=== PATIENT | female | born 1980 | race Caucasian/White ===

== ENCOUNTER 2017-08-18 12:55 | Inpatient (IN) | payer OTHER, SELFPAY ==
[2017-08-18] MEDS ORDERED: Ketorolac 30 MG/ML SDV IVPUSH ONE (13:20)
[2017-08-18] MEDS ORDERED: Sodium Chloride 0.9% 1,000 ML IV ONE (13:20)
[2017-08-18] MEDS ORDERED: Ondansetron 4 MG/2 ML SDV IVPUSH ONE (13:20)
--- NOTE | 2017-08-18 13:24 | EDM.PDOC ---
ED HPI GENERAL MEDICAL PROBLEM - General Chief Complaint: Abdominal Pain Stated Complaint: ABDOMINAL PAIN Time Seen by Provider: 08/18/17 12:57 Source of Information: Reports: Patient History Limitations: Reports: No Limitations - History of Present Illness INITIAL COMMENTS - FREE TEXT/NARRATIVE: HISTORY AND PHYSICAL: History of present illness: Patient is a 37-year-old female who presents to the emergency room today with complaints of nausea, loose stools, mid abdominal pain that radiates to the right mid abdomen since Saturday. States she was able to eat Saturday into Saturday afternoon, but since that time has had no appetite and is concerned if she does eat she may have an emesis. When she describes the pain she states it feels like "round ligament pain when I was ". Has dizziness intermittently throughout the day. She denies any syncopal events. Does not improve or worsen with rest or activity. Denies any chest pain, shortness of breath, fever, chills. Denies vomiting, blood in her stools, dysuria. No recent injury or trauma. 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 Review of systems: As per history of present illness and below otherwise all systems reviewed and negative. Past medical history: As per history of present illness and as reviewed below otherwise noncontributory. Surgical history: As per history of present illness and as reviewed below otherwise noncontributory. Social history: No reported history of drug or alcohol abuse. Family history: As per history of present illness and as reviewed below otherwise noncontributory. Physical exam: Gen.: Nontoxic-appearing 37-year-old female. Alert and oriented. Well-developed and well-nourished. HEENT: Atraumatic, normocephalic, pupils reactive, negative for conjunctival pallor or scleral icterus, unable to visualize the tympanic membranes due to cerumen bilaterally, mucous membranes moist, throat clear, neck supple, nontender, trachea midline. Lungs: Clear to auscultation, breath sounds equal bilaterally, chest nontender. We'll do speak in full sentences without shortness of breath. Heart: S1S2, regular rate and rhythm Abdomen: Soft, obese, nondistended, tenderness to the right upper and lower quadrant-no rebound tenderness. Negative for masses or hepatosplenomegaly. Negative for costovertebral tenderness. Pelvis: Stable nontender. Genitourinary: Deferred. Rectal: Deferred. Extremities: Atraumatic, moves all extremities per self, negative for cords or calf pain. Neurovascular unremarkable. Neuro: Awake, alert, oriented. Cranial nerves II through XII unremarkable. Cerebellum unremarkable. Motor and sensory unremarkable throughout. Exam nonfocal. 1430- patient reports that she is comfortable after the Toradol and declines any further pain medication at this time. Reports pain is a 2 out of 10 and is more localized in the right lower quadrant. Instructed to be nothing by mouth. 1535- consulting radiology called at this time, patient has an acute appendicitis. Dr. Garvey was paged for consult, to immediately return the call and will come in to evaluate the patient. 1540- patient is aware diagnosis. She states her pain is still a 2 out of 10 and still declines any additional pain medication. 1545- Dr Garvey is here to see patient. Surgery pending. Dr Garvey is entering orders. Diagnostics: CBC, CMP, amylase, lipase, UA, urine Therapeutics: IV fluid, Zofran, Toradol Impression: Abdominal pain Acute appendicitis Plan: Under the care of Dr. Garvey for treatment of acute appendicitis Definitive disposition and diagnosis as appropriate pending reevaluation and review of above. Onset Date: 08/16/17 Duration: Day(s): Location: Reports: Abdomen Improves with: Reports: None Worsens with: Reports: None Associated Symptoms: Reports: Loss of Appetite, Nausea/Vomiting, Other ( Dizziness). Denies: Chest Pain, Cough, Diaphoresis, Shortness of Breath, Syncope abdominal pain Pain Score (Numeric/FACES): 8 - Related Data Allergies Allergy/AdvReac Type Severity Reaction Status Date / Time No Known Allergies Allergy Verified 08/18/17 13:05 Home Meds: Home Meds . [No Known Home Meds] 08/18/17 [History] Past Medical History - Past Health History Medical/Surgical History: Denies Medical/Surgical History - Infectious Disease History Infectious Disease History: Reports: Chicken Pox - Past Surgical History HEENT Surgical History: Reports: Oral Surgery, Tonsillectomy Social & Family History - Family History Family Medical History: Noncontributory - Tobacco Use Smoking Status *Q: Never Smoker - Caffeine Use Caffeine Use: Reports: Coffee - Alcohol Use Days Per Week of Alcohol Use: 0 - Recreational Drug Use Recreational Drug Use: No ED ROS GENERAL - Review of Systems Review Of Systems: ROS reveals no pertinent complaints other than HPI. ED EXAM, GI/ABD - Physical Exam Exam: See Below (See dictation) Course - Vital Signs Last Recorded V/S: Last Vital Signs Temp 36.6 C 08/18/17 13:06 Pulse 100 08/18/17 13:06 Resp 18 08/18/17 13:06 BP 162/98 H 08/18/17 13:06 Pulse Ox 99 08/18/17 13:06 - Orders/Labs/Meds Orders: Active Orders 24 hr Category Date Time Status Abdomen Pelvis w Cont [CT] Stat Exams 08/18/17 13:56 Taken Piperacillin/Tazobactam [Piperacil-Tazobact] 3.375 gm Med 08/18/17 16:01 Active Sodium Chloride 0.9% [Normal Saline] 50 ml IV ONETIME Medication Orders Piperacillin Sod/Tazobactam (Sod 3.375 gm/ Sodium Chloride) 50 mls @ 100 mls/ hr IV ONETIME ONE Stop: 08/18/17 16:30 Labs: Laboratory Tests 08/18/17 08/18/17 08/18/17 Range/Units 13:10 13:10 13:50 WBC 17.83 H (4.0-11.0) K/uL RBC 5.18 (4.30-5.90) M/uL Hgb 13.7 (12.0-16.0) g/dL Hct 41.9 (36.0-46.0) % MCV 80.9 (80.0-98.0) fL MCH 26.4 L (27.0-32.0) pg MCHC 32.7 (31.0-37.0) g/dL RDW Std Deviation 43.0 (28.0-62.0) fl RDW Coeff of Rudy 15 (11.0-15.0) % Plt Count 359 (150-400) K/uL MPV 8.90 (7.40-12.00) fL Neut % (Auto) 86.8 H (48.0-80.0) % Lymph % (Auto) 6.8 L (16.0-40.0) % [place] % (Auto) 6.1 (0.0-15.0) % Eos % (Auto) 0.1 (0.0-7.0) % Baso % (Auto) 0.2 (0.0-1.5) % Neut # (Auto) 15.5 H (1.4-5.7) K/uL Lymph # (Auto) 1.2 (0.6-2.4) K/uL [place] # (Auto) 1.1 H (0.0-0.8) K/uL Eos # (Auto) 0.0 (0.0-0.7) K/uL Baso # (Auto) 0.0 (0.0-0.1) K/uL Nucleated RBC % 0.0 /100WBC Nucleated RBCs # 0 K/uL Sodium (136-146) mmol/L Potassium (3.5-5.1) mmol/L Chloride (98-110) mmol/L Carbon Dioxide (21-31) mmol/L BUN (6.0-23.0) mg/dL Creatinine (0.6-1.5) mg/dL Est Cr Clr Drug Dosing mL/min Estimated GFR (MDRD) ml/min Glucose (60-110) mg/dL Calcium (8.8-10.8) mg/dL Total Bilirubin (0.1-1.5) mg/dL AST (5-40) IU/L ALT (8-54) IU/L Alkaline Phosphatase (40-150) Total Protein (6.0-8.0) g/dL Albumin (3.5-5.0) g/dL Globulin (2.0-3.5) g/dL Albumin/Globulin Ratio (1.3-2.8) Amylase (10-90) U/L Lipase (7-80) U/L Urine Color YELLOW Urine Appearance CLEAR Urine pH 6.0 (5.0-8.0) Ur Specific [place] 1.020 (1.001-1.035) Urine Protein NEGATIVE (NEGATIVE) mg/dL Urine Glucose (UA) NEGATIVE (NEGATIVE) mg/dL Urine Ketones 15 H (NEGATIVE) mg/dL Urine Occult Blood TRACE-LYSED (NEGATIVE) Urine Nitrite NEGATIVE (NEGATIVE) Urine Bilirubin NEGATIVE (NEGATIVE) Urine Urobilinogen 0.2 (<2.0) EU/dL Ur Leukocyte Esterase NEGATIVE (NEGATIVE) Urine RBC 0-2 (0-2/HPF) Urine WBC 0-2 (0-5/HPF) Ur Epithelial Cells OCCASIONAL (NONE-FEW) Amorphous Sediment LIGHT (NEGATIVE) Urine Bacteria NOT SEEN (NEGATIVE) Urine Mucus NOT SEEN (NONE-MOD) Urine HCG, Qual NEGATIVE (NEGATIVE) 08/18/17 Range/Units 13:50 WBC (4.0-11.0) K/uL RBC (4.30-5.90) M/uL Hgb (12.0-16.0) g/dL Hct (36.0-46.0) % MCV (80.0-98.0) fL MCH (27.0-32.0) pg MCHC (31.0-37.0) g/dL RDW Std Deviation (28.0-62.0) fl RDW Coeff of Rudy (11.0-15.0) % Plt Count (150-400) K/uL MPV (7.40-12.00) fL Neut % (Auto) (48.0-80.0) % Lymph % (Auto) (16.0-40.0) % [place] % (Auto) (0.0-15.0) % Eos % (Auto) (0.0-7.0) % Baso % (Auto) (0.0-1.5) % Neut # (Auto) (1.4-5.7) K/uL Lymph # (Auto) (0.6-2.4) K/uL [place] # (Auto) (0.0-0.8) K/uL Eos # (Auto) (0.0-0.7) K/uL Baso # (Auto) (0.0-0.1) K/uL Nucleated RBC % /100WBC Nucleated RBCs # K/uL Sodium 139 (136-146) mmol/L Potassium 3.8 (3.5-5.1) mmol/L Chloride 103 (98-110) mmol/L Carbon Dioxide 25 (21-31) mmol/L BUN 8 (6.0-23.0) mg/dL Creatinine 0.8 (0.6-1.5) mg/dL Est Cr Clr Drug Dosing 76.15 mL/min Estimated GFR (MDRD) > 60.0 ml/min Glucose 120 H (60-110) mg/dL Calcium 9.4 (8.8-10.8) mg/dL Total Bilirubin 0.6 (0.1-1.5) mg/dL AST 11 (5-40) IU/L ALT 23 (8-54) IU/L Alkaline Phosphatase 69 (40-150) Total Protein 7.4 (6.0-8.0) g/dL Albumin 4.2 (3.5-5.0) g/dL Globulin 3.2 (2.0-3.5) g/dL Albumin/Globulin Ratio 1.3 (1.3-2.8) Amylase 39 (10-90) U/L Lipase 18 (7-80) U/L Urine Color Urine Appearance Urine pH (5.0-8.0) Ur Specific [place] (1.001-1.035) Urine Protein (NEGATIVE) mg/dL Urine Glucose (UA) (NEGATIVE) mg/dL Urine Ketones (NEGATIVE) mg/dL Urine Occult Blood (NEGATIVE) Urine Nitrite (NEGATIVE) Urine Bilirubin (NEGATIVE) Urine Urobilinogen (<2.0) EU/dL Ur Leukocyte Esterase (NEGATIVE) Urine RBC (0-2/HPF) Urine WBC (0-5/HPF) Ur Epithelial Cells (NONE-FEW) Amorphous Sediment (NEGATIVE) Urine Bacteria (NEGATIVE) Urine Mucus (NONE-MOD) Urine HCG, Qual (NEGATIVE) Meds: Medications Generic Name Dose Route Start Last Admin Trade Name Freq PRN Reason Stop Dose Admin Piperacillin Sod/Tazobactam 50 mls @ 100 mls/hr 08/18/17 16:01 Sod 3.375 gm/ Sodium Chloride IV 08/18/17 16:30 ONETIME ONE Discontinued Medications Generic Name Dose Route Start Last Admin Trade Name Freq PRN Reason Stop Dose Admin Sodium Chloride 1,000 mls @ 999 mls/hr 08/18/17 13:20 08/18/17 13:53 Normal Saline IV 08/18/17 14:20 999 mls/hr STAT ONE Administration Iopamidol 100 ml 08/18/17 14:54 08/18/17 14:56 Isovue-370 (76%) IVPUSH 08/18/17 14:55 100 ml ONETIME STA Administration Ketorolac Tromethamine 30 mg 08/18/17 13:20 08/18/17 13:53 Toradol IVPUSH 08/18/17 13:21 30 mg ONETIME ONE Administration Ondansetron HCl 4 mg 08/18/17 13:20 08/18/17 13:53 Zofran IVPUSH 08/18/17 13:21 4 mg ONETIME ONE Administration Departure - Departure Time of Disposition: 16:09 Disposition: Home, Self-Care 01 Clinical Impression: Acute appendicitis Qualifiers: Acute appendicitis type: unspecified acute appendicitis type Qualified Code(s) : K35.80 - Unspecified acute appendicitis - Discharge Information Referrals: PCP,None [Primary Care Provider] - Forms: ED Department Discharge - My Orders Last 24 Hours: My Active Orders 08/18/17 13:56 Abdomen Pelvis w Cont [CT] Stat - Assessment/Plan Last 24 Hours: My Active Orders 08/18/17 13:56 Abdomen Pelvis w Cont [CT] Stat
[2017-08-18 14:30] LABS: CHLORIDE,CL 103 mmol/L (98-110); SODIUM,NA 139 mmol/L (136-146)
[2017-08-18] MEDS ORDERED: Iopamidol 755 Mg/ML 100 ML Bottle IVPUSH STA (14:54)
[2017-08-18] MEDS ORDERED: Piperacillin/Tazobactam 3.375 GM in Sodium Chloride 0.9% 50 ML IV ONE (16:01)
[2017-08-18] MEDS ORDERED: HYDROmorphone 2 MG/ML Syringe IVPUSH PRN (16:21)
--- NOTE | 2017-08-18 16:33 | PCM.HP ---
H&P History of Present Illness - General Date of Service: 08/18/17 Admit Problem/Dx: Admission Diagnosis/Problem Admission Diagnosis/Problem Appendicitis Source of Information: Patient History Limitations: Reports: No Limitations - History of Present Illness Initial Comments - Free Text/Narative: Patient is a 37 year old female who developed abdominal pain on Saturday. It was generalized and located in the central abdomen. The pain became more and more severe. Last night she had fevers, chills, and nausea but stayed at home. She did not take anything for the pain. The pain became located in the RLQ and since it continued to become more severe she presented to the ED. She has a WBC of 17K. Her CT shows a thickened inflamed appendix associated with inflammatory changes in the RLQ. She has some complex fluid in the pelvis but no specific abscess collection. She was given fluids and some IV pain medications which have helped. Her last meal was yesterday. Her last fluid intake was around 12. abdominal pain Pain Score (Numeric/FACES): 8 - Related Data Allergies/Adverse Reactions: Allergies Allergy/AdvReac Type Severity Reaction Status Date / Time No Known Allergies Allergy Verified 08/18/17 13:05 Home Medications: Home Meds . [No Known Home Meds] 08/18/17 [History] Past Medical History - Past Health History Medical/Surgical History: Denies Medical/Surgical History - Infectious Disease History Infectious Disease History: Reports: Chicken Pox - Past Surgical History HEENT Surgical History: Reports: Oral Surgery, Tonsillectomy Social & Family History - Family History Family Medical History: Noncontributory - Tobacco Use Smoking Status *Q: Never Smoker - Caffeine Use Caffeine Use: Reports: Coffee - Alcohol Use Days Per Week of Alcohol Use: 0 - Recreational Drug Use Recreational Drug Use: No H&P Review of Systems - Review of Systems: Review Of Systems: ROS reveals no pertinent complaints other than HPI. Exam - Exam Exam: See Below - Vital Signs Vital Signs: Last Vital Signs Temp 36.6 C 08/18/17 13:06 Pulse 100 08/18/17 13:06 Resp 18 08/18/17 13:06 BP 162/98 H 08/18/17 13:06 Pulse Ox 99 08/18/17 13:06 Weight: 111.13 kg - Exam General: Alert, Oriented HEENT: Conjunctiva Clear, Mucosa Moist & [place], Posterior Pharynx Clear Neck: Supple Lungs: Clear to Auscultation, Normal Respiratory Effort Cardiovascular: Regular Rate, Regular Rhythm GI/Abdominal Exam: Soft, Non-Tender, No Distention Back Exam: Normal Inspection Extremities: Normal Inspection, Normal Range of Motion - Patient Data Lab Results Last 24 hrs: Laboratory Results - last 24 hr 08/18/17 08/18/17 08/18/17 Range/Units 13:10 13:10 13:50 WBC 17.83 H (4.0-11.0) K/uL RBC 5.18 (4.30-5.90) M/uL Hgb 13.7 (12.0-16.0) g/dL Hct 41.9 (36.0-46.0) % MCV 80.9 (80.0-98.0) fL MCH 26.4 L (27.0-32.0) pg MCHC 32.7 (31.0-37.0) g/dL RDW Std Deviation 43.0 (28.0-62.0) fl RDW Coeff of Rudy 15 (11.0-15.0) % Plt Count 359 (150-400) K/uL MPV 8.90 (7.40-12.00) fL Neut % (Auto) 86.8 H (48.0-80.0) % Lymph % (Auto) 6.8 L (16.0-40.0) % [place] % (Auto) 6.1 (0.0-15.0) % Eos % (Auto) 0.1 (0.0-7.0) % Baso % (Auto) 0.2 (0.0-1.5) % Neut # (Auto) 15.5 H (1.4-5.7) K/uL Lymph # (Auto) 1.2 (0.6-2.4) K/uL [place] # (Auto) 1.1 H (0.0-0.8) K/uL Eos # (Auto) 0.0 (0.0-0.7) K/uL Baso # (Auto) 0.0 (0.0-0.1) K/uL Nucleated RBC % 0.0 /100WBC Nucleated RBCs # 0 K/uL Sodium (136-146) mmol/L Potassium (3.5-5.1) mmol/L Chloride (98-110) mmol/L Carbon Dioxide (21-31) mmol/L BUN (6.0-23.0) mg/dL Creatinine (0.6-1.5) mg/dL Est Cr Clr Drug Dosing mL/min Estimated GFR (MDRD) ml/min Glucose (60-110) mg/dL Calcium (8.8-10.8) mg/dL Total Bilirubin (0.1-1.5) mg/dL AST (5-40) IU/L ALT (8-54) IU/L Alkaline Phosphatase (40-150) Total Protein (6.0-8.0) g/dL Albumin (3.5-5.0) g/dL Globulin (2.0-3.5) g/dL Albumin/Globulin Ratio (1.3-2.8) Amylase (10-90) U/L Lipase (7-80) U/L Urine Color YELLOW Urine Appearance CLEAR Urine pH 6.0 (5.0-8.0) Ur Specific [place] 1.020 (1.001-1.035) Urine Protein NEGATIVE (NEGATIVE) mg/dL Urine Glucose (UA) NEGATIVE (NEGATIVE) mg/dL Urine Ketones 15 H (NEGATIVE) mg/dL Urine Occult Blood TRACE-LYSED (NEGATIVE) Urine Nitrite NEGATIVE (NEGATIVE) Urine Bilirubin NEGATIVE (NEGATIVE) Urine Urobilinogen 0.2 (<2.0) EU/dL Ur Leukocyte Esterase NEGATIVE (NEGATIVE) Urine RBC 0-2 (0-2/HPF) Urine WBC 0-2 (0-5/HPF) Ur Epithelial Cells OCCASIONAL (NONE-FEW) Amorphous Sediment LIGHT (NEGATIVE) Urine Bacteria NOT SEEN (NEGATIVE) Urine Mucus NOT SEEN (NONE-MOD) Urine HCG, Qual NEGATIVE (NEGATIVE) 08/18/17 Range/Units 13:50 WBC (4.0-11.0) K/uL RBC (4.30-5.90) M/uL Hgb (12.0-16.0) g/dL Hct (36.0-46.0) % MCV (80.0-98.0) fL MCH (27.0-32.0) pg MCHC (31.0-37.0) g/dL RDW Std Deviation (28.0-62.0) fl RDW Coeff of Rudy (11.0-15.0) % Plt Count (150-400) K/uL MPV (7.40-12.00) fL Neut % (Auto) (48.0-80.0) % Lymph % (Auto) (16.0-40.0) % [place] % (Auto) (0.0-15.0) % Eos % (Auto) (0.0-7.0) % Baso % (Auto) (0.0-1.5) % Neut # (Auto) (1.4-5.7) K/uL Lymph # (Auto) (0.6-2.4) K/uL [place] # (Auto) (0.0-0.8) K/uL Eos # (Auto) (0.0-0.7) K/uL Baso # (Auto) (0.0-0.1) K/uL Nucleated RBC % /100WBC Nucleated RBCs # K/uL Sodium 139 (136-146) mmol/L Potassium 3.8 (3.5-5.1) mmol/L Chloride 103 (98-110) mmol/L Carbon Dioxide 25 (21-31) mmol/L BUN 8 (6.0-23.0) mg/dL Creatinine 0.8 (0.6-1.5) mg/dL Est Cr Clr Drug Dosing 76.15 mL/min Estimated GFR (MDRD) > 60.0 ml/min Glucose 120 H (60-110) mg/dL Calcium 9.4 (8.8-10.8) mg/dL Total Bilirubin 0.6 (0.1-1.5) mg/dL AST 11 (5-40) IU/L ALT 23 (8-54) IU/L Alkaline Phosphatase 69 (40-150) Total Protein 7.4 (6.0-8.0) g/dL Albumin 4.2 (3.5-5.0) g/dL Globulin 3.2 (2.0-3.5) g/dL Albumin/Globulin Ratio 1.3 (1.3-2.8) Amylase 39 (10-90) U/L Lipase 18 (7-80) U/L Urine Color Urine Appearance Urine pH (5.0-8.0) Ur Specific [place] (1.001-1.035) Urine Protein (NEGATIVE) mg/dL Urine Glucose (UA) (NEGATIVE) mg/dL Urine Ketones (NEGATIVE) mg/dL Urine Occult Blood (NEGATIVE) Urine Nitrite (NEGATIVE) Urine Bilirubin (NEGATIVE) Urine Urobilinogen (<2.0) EU/dL Ur Leukocyte Esterase (NEGATIVE) Urine RBC (0-2/HPF) Urine WBC (0-5/HPF) Ur Epithelial Cells (NONE-FEW) Amorphous Sediment (NEGATIVE) Urine Bacteria (NEGATIVE) Urine Mucus (NONE-MOD) Urine HCG, Qual (NEGATIVE) Result Diagrams: 08/18/17 13:50 08/18/17 13:50 *Q Meaningful Use (ADM) - VTE *Q VTE Criteria *Q: - Stroke *Q Stroke Criteria *Q: - AMI *Q AMI Criteria *Q: - Problem List (1) Acute appendicitis SNOMED Code(s): 00613831 ICD Code: K35.80 - UNSPECIFIED ACUTE APPENDICITIS Status: Acute Current Visit: Yes Qualifiers: Acute appendicitis type: unspecified acute appendicitis type Qualified Code (s): K35.80 - Unspecified acute appendicitis Problem List Initiated/Reviewed/Updated: Yes Orders Last 24hrs: Active Orders 24 hr Category Date Time Status Patient Status [ADT] Routine ADT 08/18/17 16:21 Ordered Antiembolic Devices [RC] PER UNIT ROUTINE Care 08/18/17 16:24 Ordered Oxygen Therapy [RC] PRN Care 08/18/17 16:21 Ordered RT Incentive Spirometry [RC] ASDIRECTED Care 08/18/17 16:21 Ordered Up ad Sandie [RC] ASDIRECTED Care 08/18/17 16:21 Ordered Vital Signs [RC] PER UNIT ROUTINE Care 08/18/17 16:21 Ordered Nothing Per Oral Diet [DIET] Diet 08/18/17 Dinner Ordered Abdomen Pelvis w Cont [CT] Stat Exams 08/18/17 13:56 Taken CBC W/O DIFF,HEMOGRAM [HEME] AM Lab 08/19/17 05:11 Ordered Acetaminophen/HYDROcodone [[place] 325-5 MG] Med 08/18/17 16:21 Ordered 2 tab PO Q4H PRN HYDROmorphone [Dilaudid] Med 08/18/17 16:21 Ordered 0.5 mg IVPUSH Q1H PRN Lactated Ringers @ 125 MLS/HR(1000ml) Med 08/18/17 16:30 Ordered Lactated Ringers [Ringers, Lactated] 1,000 ml IV ASDIRECTED Ondansetron [Zofran] Med 08/18/17 16:21 Ordered 4 mg IVPUSH Q6H PRN Piperacillin/Tazobactam [Piperacil-Tazobact] 3.375 gm Med 08/18/17 16:01 Active Sodium Chloride 0.9% [Normal Saline] 50 ml IV ONETIME SCD [Sequential Compression Device] [OM.PC] Stat Oth 08/18/17 16:24 Ordered Resuscitation Status Routine Resus Stat 08/18/17 16:21 Ordered Medication Orders Hydrocodone Bitart/Acetaminophen ([place] 325-5 Mg) 2 tab PO Q4H PRN PRN Reason: Pain (moderate 4-6) Hydromorphone HCl (Dilaudid) 0.5 mg IVPUSH Q1H PRN PRN Reason: Pain (severe 7-10) Piperacillin Sod/Tazobactam (Sod 3.375 gm/ Sodium Chloride) 50 mls @ 100 mls/ hr IV ONETIME ONE Stop: 08/18/17 16:30 Last Admin: 08/18/17 16:13 Dose: 100 mls/hr Lactated Ringer's (Ringers, Lactated) 1,000 mls @ 125 mls/hr IV ASDIRECTED MARGARITA Ondansetron HCl (Zofran) 4 mg IVPUSH Q6H PRN PRN Reason: Nausea/Vomiting Assessment/Plan Comment:: The patient and I discussed the pathophysiology of appendicitis. The treatment for this is appendectomy. We discussed the laparoscopic and open approach. Her CT findings suggest she has perforated and there is a large amount of inflammation around the appendix. I will attempt this laparoscopically but there is a good chance I may convert to open. I explained to her that if it is perforated there is an increased risk of infection after surgery. With her CT findings I may have to perform a cecal resection if the base of the appendix is necrotic. We discussed the risks of bleeding and damage to surrounding structures as well. She verbalized understanding and wishes to proceed. I also informed her that she has cholelithiasis but we will not be removing her gallbladder today. We will discuss gallbladder removal at a later date.
[2017-08-18] MEDS ORDERED: Propofol 200 MG/20 ML SDV ONE (16:39)
[2017-08-18] MEDS ORDERED: Bupivacaine 0.5% 30 ML SDV ONE (16:39)
[2017-08-18] MEDS ORDERED: fentaNYL 100 MCG/2 ML SDV ONE (16:39)
[2017-08-18] MEDS ORDERED: ceFAZolin 1 GM Vial ONE (16:39)
[2017-08-18] MEDS ORDERED: Midazolam 1 MG/ML 2 ML SDV ONE (16:39)
[2017-08-18] MEDS ORDERED: Neostigmine Methylsulfate 1 MG/ML 5 ML Syringe ONE (16:44)
[2017-08-18] MEDS ORDERED: diphenhydrAMINE 50 MG/ML SDV ONE (16:44)
[2017-08-18] MEDS ORDERED: Rocuronium 10 MG/ML 10 ML Syringe ONE (16:44)
[2017-08-18] MEDS ORDERED: Lidocaine 2% 5 ML SDV ONE (16:44)
[2017-08-18] MEDS ORDERED: Ondansetron 4 MG/2 ML SDV ONE (16:44)
[2017-08-18] MEDS ORDERED: fentaNYL 100 MCG/2 ML SDV IVPUSH PRN (17:30)
--- NOTE | 2017-08-18 17:30 | PCM.PREANE ---
Preanesthetic Assessment - Procedure Proposed Procedure: appendectomy - Anesthesia/Transfusion/Family Hx Anesthesia History: Prior Anesthesia Without Reaction (wisdom teeth,t/a) Family History of Anesthesia Reaction: No - Review of Systems Pulmonary: No Symptoms Cardiovascular: No Symptoms Gastrointestinal: Abdominal Pain Neurological: No Symptoms - Physical Assessment NPO Status Date: 08/18/17 (water) NPO Status Time: 12:00 O2 Sat by Pulse Oximetry: 99 Respiratory Rate: 18 Vital Signs: Last Vital Signs Temp 36.6 C 08/18/17 13:06 Pulse 100 08/18/17 13:06 Resp 18 08/18/17 13:06 BP 162/98 H 08/18/17 13:06 Pulse Ox 99 08/18/17 13:06 Height: 1.57 m Weight: 111.13 kg ASA Class: 2E Mental Status: Alert & Oriented x3 Dentition: Reports: Normal Dentition Thyro-Mental Finger Breadths: 3 Mouth Opening Finger Breadths: 4 ROM/Head Extension: Full Lungs: Clear to Auscultation, Normal Respiratory Effort Cardiovascular: Regular Rate, Regular Rhythm - Lab Values: Laboratory Last Values WBC 17.83 K/uL (4.0-11.0) H 08/18/17 13:50 RBC 5.18 M/uL (4.30-5.90) 08/18/17 13:50 Hgb 13.7 g/dL (12.0-16.0) 08/18/17 13:50 Hct 41.9 % (36.0-46.0) 08/18/17 13:50 MCV 80.9 fL (80.0-98.0) 08/18/17 13:50 MCH 26.4 pg (27.0-32.0) L 08/18/17 13:50 MCHC 32.7 g/dL (31.0-37.0) 08/18/17 13:50 RDW Std Deviation 43.0 fl (28.0-62.0) 08/18/17 13:50 RDW Coeff of Rudy 15 % (11.0-15.0) 08/18/17 13:50 Plt Count 359 K/uL (150-400) 08/18/17 13:50 MPV 8.90 fL (7.40-12.00) 08/18/17 13:50 Neut % (Auto) 86.8 % (48.0-80.0) H 08/18/17 13:50 Lymph % (Auto) 6.8 % (16.0-40.0) L 08/18/17 13:50 [place] % (Auto) 6.1 % (0.0-15.0) 08/18/17 13:50 Eos % (Auto) 0.1 % (0.0-7.0) 08/18/17 13:50 Baso % (Auto) 0.2 % (0.0-1.5) 08/18/17 13:50 Neut # (Auto) 15.5 K/uL (1.4-5.7) H 08/18/17 13:50 Lymph # (Auto) 1.2 K/uL (0.6-2.4) 08/18/17 13:50 [place] # (Auto) 1.1 K/uL (0.0-0.8) H 08/18/17 13:50 Eos # (Auto) 0.0 K/uL (0.0-0.7) 08/18/17 13:50 Baso # (Auto) 0.0 K/uL (0.0-0.1) 08/18/17 13:50 Nucleated RBC % 0.0 /100WBC 08/18/17 13:50 Nucleated RBCs # 0 K/uL 08/18/17 13:50 Sodium 139 mmol/L (136-146) 08/18/17 13:50 Potassium 3.8 mmol/L (3.5-5.1) 08/18/17 13:50 Chloride 103 mmol/L (98-110) 08/18/17 13:50 Carbon Dioxide 25 mmol/L (21-31) 08/18/17 13:50 BUN 8 mg/dL (6.0-23.0) 08/18/17 13:50 Creatinine 0.8 mg/dL (0.6-1.5) 08/18/17 13:50 Est Cr Clr Drug Dosing 76.15 mL/min 08/18/17 13:50 Estimated GFR (MDRD) > 60.0 ml/min 08/18/17 13:50 Glucose 120 mg/dL (60-110) H 08/18/17 13:50 Calcium 9.4 mg/dL (8.8-10.8) 08/18/17 13:50 Total Bilirubin 0.6 mg/dL (0.1-1.5) 08/18/17 13:50 AST 11 IU/L (5-40) 08/18/17 13:50 ALT 23 IU/L (8-54) 08/18/17 13:50 Alkaline Phosphatase 69 (40-150) 08/18/17 13:50 Total Protein 7.4 g/dL (6.0-8.0) 08/18/17 13:50 Albumin 4.2 g/dL (3.5-5.0) 08/18/17 13:50 Globulin 3.2 g/dL (2.0-3.5) 08/18/17 13:50 Albumin/Globulin Ratio 1.3 (1.3-2.8) 08/18/17 13:50 Amylase 39 U/L (10-90) 08/18/17 13:50 Lipase 18 U/L (7-80) 08/18/17 13:50 Urine Color YELLOW 08/18/17 13:10 Urine Appearance CLEAR 08/18/17 13:10 Urine pH 6.0 (5.0-8.0) 08/18/17 13:10 Ur Specific [place] 1.020 (1.001-1.035) 08/18/17 13:10 Urine Protein NEGATIVE mg/dL (NEGATIVE) 08/18/17 13:10 Urine Glucose (UA) NEGATIVE mg/dL (NEGATIVE) 08/18/17 13:10 Urine Ketones 15 mg/dL (NEGATIVE) H 08/18/17 13:10 Urine Occult Blood TRACE-LYSED (NEGATIVE) 08/18/17 13:10 Urine Nitrite NEGATIVE (NEGATIVE) 08/18/17 13:10 Urine Bilirubin NEGATIVE (NEGATIVE) 08/18/17 13:10 Urine Urobilinogen 0.2 EU/dL (<2.0) 08/18/17 13:10 Ur Leukocyte Esterase NEGATIVE (NEGATIVE) 08/18/17 13:10 Urine RBC 0-2 (0-2/HPF) 08/18/17 13:10 Urine WBC 0-2 (0-5/HPF) 08/18/17 13:10 Ur Epithelial Cells OCCASIONAL (NONE-FEW) 08/18/17 13:10 Amorphous Sediment LIGHT (NEGATIVE) 08/18/17 13:10 Urine Bacteria NOT SEEN (NEGATIVE) 08/18/17 13:10 Urine Mucus NOT SEEN (NONE-MOD) 08/18/17 13:10 Urine HCG, Qual NEGATIVE (NEGATIVE) 08/18/17 13:10 - Allergies Allergies/Adverse Reactions: Allergies Allergy/AdvReac Type Severity Reaction Status Date / Time No Known Allergies Allergy Verified 08/18/17 13:05 - Blood Blood Available: No - Acknowledgements Anesthesia Type Planned: General Anesthesia Pt an Appropriate Candidate for the Planned Anesthesia: Yes Alternatives and Risks of Anesthesia Discussed w Pt/Guardian: Yes Pt/Guardian Understands and Agrees with Anesthesia Plan: Yes PreAnesthesia Questionnaire - Past Health History Medical/Surgical History: Denies Medical/Surgical History - Infectious Disease History Infectious Disease History: Reports: Chicken Pox - Past Surgical History HEENT Surgical History: Reports: Oral Surgery, Tonsillectomy - SUBSTANCE USE Smoking Status *Q: Never Smoker Days Per Week of Alcohol Use: 0 Recreational Drug Use History: No - HOME MEDS Home Medications: Home Meds . [No Known Home Meds] 08/18/17 [History] - CURRENT (IN HOUSE) MEDS Current Meds: Current Medications Hydrocodone Bitart/Acetaminophen ([place] 325-5 Mg) 2 tab PO Q4H PRN PRN Reason: Pain (moderate 4-6) Hydromorphone HCl (Dilaudid) 0.5 mg IVPUSH Q1H PRN PRN Reason: Pain (severe 7-10) Lactated Ringer's (Ringers, Lactated) 1,000 mls @ 125 mls/hr IV ASDIRECTED [facility] Ondansetron HCl (Zofran) 4 mg IVPUSH Q6H PRN PRN Reason: Nausea/Vomiting Discontinued Medications Bupivacaine HCl (Marcaine 0.5%) Confirm Administered Dose 30 ml .ROUTE .STK-MED ONE Stop: 08/18/17 16:40 Cefazolin Sodium (Ancef) Confirm Administered Dose 1 gm .ROUTE .STK-MED ONE Stop: 08/18/17 16:40 Diphenhydramine HCl (Benadryl) Confirm Administered Dose 50 mg .ROUTE .STK-MED ONE Stop: 08/18/17 16:45 Fentanyl (Sublimaze) Confirm Administered Dose 100 mcg .ROUTE .STK-MED ONE Stop: 08/18/17 16:40 Glycopyrrolate () Confirm Administered Dose 1 mg .ROUTE .STK-MED ONE Stop: 08/18/17 16:45 Sodium Chloride (Normal Saline) 1,000 mls @ 999 mls/hr IV STAT ONE Stop: 08/18/17 14:20 Last Admin: 08/18/17 13:53 Dose: 999 mls/hr Piperacillin Sod/Tazobactam (Sod 3.375 gm/ Sodium Chloride) 50 mls @ 100 mls/ hr IV ONETIME ONE Stop: 08/18/17 16:30 Last Admin: 08/18/17 16:13 Dose: 100 mls/hr Iopamidol (Isovue-370 (76%)) 100 ml IVPUSH ONETIME STA Stop: 08/18/17 14:55 Last Admin: 08/18/17 14:56 Dose: 100 ml Ketorolac Tromethamine (Toradol) 30 mg IVPUSH ONETIME ONE Stop: 08/18/17 13:21 Last Admin: 08/18/17 13:53 Dose: 30 mg Lidocaine (Xylocaine-Mpf 2%) Confirm Administered Dose 5 ml .ROUTE .STK-MED ONE Stop: 08/18/17 16:45 Midazolam HCl (Versed 1 Mg/Ml) Confirm Administered Dose 2 mg .ROUTE .STK-MED ONE Stop: 08/18/17 16:40 Neostigmine Methylsulfate (Neostigmine) Confirm Administered Dose 5 mg .ROUTE .STK-MED ONE Stop: 08/18/17 16:45 Ondansetron HCl (Zofran) 4 mg IVPUSH ONETIME ONE Stop: 08/18/17 13:21 Last Admin: 08/18/17 13:53 Dose: 4 mg Ondansetron HCl (Zofran) Confirm Administered Dose 4 mg .ROUTE .STK-MED ONE Stop: 08/18/17 16:45 Propofol (Diprivan 20 Ml) Confirm Administered Dose 200 mg .ROUTE .STK-MED ONE Stop: 08/18/17 16:40 Rocuronium [place] (Zemuron) Confirm Administered Dose 100 mg .ROUTE .STK-MED ONE Stop: 08/18/17 16:45
[2017-08-18] MEDS ORDERED: fentaNYL 250 MCG/5 ML SDV ONE (17:34)
[2017-08-18] MEDS ORDERED: Meperidine PF 25 MG/ML Syringe ONE (18:50)
--- NOTE | 2017-08-18 18:52 | PCM.OPNOTE ---
- General Post-Op/Procedure Note Date of Surgery/Procedure: 08/18/17 Operative Procedure(s): Laparoscopic appendectomy Findings: Necrotic perforated appendicitis encased by omentum and small bowel. Base of the appendix appeared healthy and I was able to staple across this safely. No abscess. Pre Op Diagnosis: appendicitis Post-Op Diagnosis: Necrotic, perforated appendicitis Anesthesia Technique: General ET Tube Primary Surgeon: Cielo Garvey Pathology: Appendix Fluid Replacement, Intraop: 1,000 Output, Urine Amount: 250 EBL in mLs: 25 Condition: Good
--- NOTE | 2017-08-18 19:10 | PCM.POSTAN ---
POST ANESTHESIA ASSESSMENT - MENTAL STATUS Mental Status: Alert - VITAL SIGNS Pulse Rate: 90 SaO2: 94 Resp Rate: 16 Blood Pressure: 130/81 - RESPIRATORY Respiratory Status: Respiratory Rate WNL, Airway Patent, O2 Saturation Stable - CARDIOVASCULAR CV Status: Pulse Rate WNL, Blood Pressure Stable - GASTROINTESTINAL GI Status: No Symptoms - PAIN Pain Score: 0 - POST OP HYDRATION Hydration Status: Adequate & Stable
[2017-08-18] MEDS: Acetaminophen/HYDROcodone 325-5 MG Tab PO PRN (21:28)
--- NOTE | 2017-08-18 22:47 | OR ---
SURGEON: VIANNEY RIVERA MD DATE OF PROCEDURE: PREOPERATIVE DIAGNOSIS: Acute appendicitis. POSTOPERATIVE DIAGNOSIS: Necrotic perforated appendicitis. PROCEDURE PERFORMED: Laparoscopic appendectomy. ANESTHESIA: General endotracheal anesthesia. FLUIDS: 1 L crystalloid. URINE OUTPUT: 250 mL. ESTIMATED BLOOD LOSS: 25 mL. FINDINGS: Necrotic and perforated appendicitis. Small bowel and omentum encasing the appendix. No evidence of intraabdominal abscess. COMPLICATIONS: None. INDICATIONS: The patient is a 37-year-old female who presents with 3 days of abdominal pain. Workup in the emergency room showed a leukocytosis of 17,[address] of the abdomen and pelvis showed an enlarged and inflamed appendix with surrounding phlegmon. The patient and I discussed the pathophysiology of acute appendicitis. I explained to her that at this point in time, I believe the appendix is perforated. I will attempt this laparoscopically, but should I be unable to complete it safely, I will convert to open. We discussed the risks including bleeding, infection, or damage to surrounding structures including perforation. The patient verbalized understanding and wishes to proceed. PROCEDURE IN DETAIL: The patient was brought into the operating room and placed on the OR table in a supine position. A time-out was completed verifying the patient's name, age, date of , allergies, and procedure to be performed. General endotracheal anesthesia was induced. The left arm was tucked to the patient's side and a Nath catheter placed. The abdomen was prepped and draped in the usual standard fashion. I anesthetized an area about 4 fingerbreadths below the left subcostal margin along the midaxillary line with 0.5% Marcaine plain. A 1 cm incision was made using 11 blade. A 5 mm optical trocar was then used to gain entry into the abdomen. All layers of the abdominal wall were noted upon placement. The abdomen was insufflated. I inspected the area underneath my initial trocar site and noted no damage to surrounding structures. A 5 mm scope was placed under direct visualization just left and lateral to the umbilicus. A 12 mm trocar was placed in the left lower quadrant under direct visualization. The patient was placed in Trendelenburg position and airplaned slightly to the left. An inflamed-appearing mass was noted in the right lower quadrant. Using gentle dissection and suction, I was able to peel the small bowel and omentum off the inflamed-appearing appendix. The appendix tip was noted and I grasped this and lifted the appendix towards the anterior abdominal wall. The appendix was noted to be perforated and actively draining purulent material. Using suction and a [place] dissector, I dissected the appendix free of the inflamed fat around the appendix up to the base of the cecum. Once I had verified my anatomy, I took a Harmonic Scalpel and dissected down. I dissected the appendiceal mesentery off the border of the appendix going from distal to proximal. Once the base of the appendix had been reached, I used an endoscopic stapling device to transect and staple across the base of the appendix with a 45 mm blue load. Despite all the inflammation, the base of the appendix appeared healthy and did not appear necrotic. During manipulation of the appendix, it tore in half. The appendix was removed in 2 parts using 2 EndoCatch bags through the 12 mm port site. The right lower quadrant was copiously irrigated with normal saline until it ran clear. I inspected the appendiceal mesentery and any bleeding points were cauterized with hook cautery. The area appeared slightly oozy, so a small piece of Surgicel was laid along the dissection line. No further bleeding was noted. I closed my 12 mm port site using a Kirill-Reece device and a single interrupted 0 Vicryl suture. This closed the fascia adequately. The 5 mm trocars were removed under direct visualization and the abdomen allowed to desufflate. Given the infected and necrotic-appearing appendix, I closed the skin incision site loosely with lucy to allow adequate drainage. The patient tolerated the procedure well. She was extubated and taken to PACU in stable condition. ANAHY THURSTON /[id number]
[2017-08-18] MEDS: Piperacillin/Tazobactam 3.375 GM in Sodium Chloride 0.9% 50 ML IV SCH (23:56)
[2017-08-19] MEDS: Lactated Ringers 1,000 ML IV SCH ×2 (00:32→07:45)
[2017-08-19] MEDS: Acetaminophen/HYDROcodone 325-5 MG Tab PO PRN ×5 (04:18→21:19)
[2017-08-19] MEDS: Piperacillin/Tazobactam 3.375 GM in Sodium Chloride 0.9% 50 ML IV SCH ×3 (07:44→23:44)
--- NOTE | 2017-08-19 08:03 | PCM48HPAN ---
Post Anesthesia Note - EVALUATION WITHIN 48HRS OF ANESTHETIC Vital Signs in Normal Range: Yes Patient Participated in Evaluation: Yes Respiratory Function Stable: Yes Airway Patent: Yes Cardiovascular Function Stable: Yes Hydration Status Stable: Yes (still on ice chips, no nausea vomiting) Pain Control Satisfactory: Yes Nausea and Vomiting Control Satisfactory: Yes Mental Status Recovered: Yes
--- NOTE | 2017-08-19 09:28 | PCM.SURGPN ---
- General Info Date of Service: 08/19/17 Date of Surgery/Procedure: 08/18/17 POD#: 1 Post-Op Diagnosis: perforated appendicitis Functional Status: Reports: Pain Controlled, Urinating - Review of Systems General: Reports: Fever Pulmonary: Reports: No Symptoms Cardiovascular: Reports: No Symptoms Gastrointestinal: Reports: Abdominal Pain (along incisions and RLQ) - Patient Data Vitals - Most Recent: Last Vital Signs Temp 37.3 C 08/19/17 08:00 Pulse 105 H 08/19/17 08:00 Resp 22 H 08/19/17 08:00 BP 112/56 L 08/19/17 08:00 Pulse Ox 91 L 08/19/17 08:00 Weight - Most Recent: 111.13 kg I&O - Last 24 Hours: Intake & Output 08/18/17 08/19/17 08/19/17 22:59 06:59 14:59 Intake Total 770 Output Total 250 Balance 520 Lab Results Last 24 Hrs: Laboratory Results - last 24 hr 08/19/17 Range/Units 05:40 WBC 10.87 (4.0-11.0) K/uL RBC 4.68 (4.30-5.90) M/uL Hgb 12.1 (12.0-16.0) g/dL Hct 38.1 (36.0-46.0) % MCV 81.4 (80.0-98.0) fL MCH 25.9 L (27.0-32.0) pg MCHC 31.8 (31.0-37.0) g/dL RDW Std Deviation 44.1 (28.0-62.0) fl RDW Coeff of Rudy 15 (11.0-15.0) % Plt Count 297 (150-400) K/uL MPV 8.90 (7.40-12.00) fL Nucleated RBC % 0.0 /100WBC Nucleated RBCs # 0 K/uL Med Orders - Current: Current Medications Hydrocodone Bitart/Acetaminophen ([place] 325-5 Mg) 2 tab PO Q4H PRN PRN Reason: Pain (moderate 4-6) Last Admin: 08/19/17 08:25 Dose: 2 tab Hydromorphone HCl (Dilaudid) 0.5 mg IVPUSH Q1H PRN PRN Reason: Pain (severe 7-10) Last Admin: 08/19/17 05:21 Dose: 0.5 mg Lactated Ringer's (Ringers, Lactated) 1,000 mls @ 125 mls/hr IV ASDIRECTED [facility] Last Admin: 08/19/17 07:45 Dose: 125 mls/hr Piperacillin Sod/Tazobactam (Sod 3.375 gm/ Sodium Chloride) 50 mls @ 100 mls/ hr IV Q8H [facility] Last Admin: 08/19/17 07:44 Dose: 100 mls/hr Ondansetron HCl (Zofran) 4 mg IVPUSH Q6H PRN PRN Reason: Nausea/Vomiting Discontinued Medications Bupivacaine HCl (Marc[place] 0.5%) Confirm Administered Dose 30 ml .ROUTE .STK-MED ONE Stop: 08/18/17 16:40 Cefazolin Sodium (Ancef) Confirm Administered Dose 1 gm .ROUTE .STK-MED ONE Stop: 08/18/17 16:40 Diphenhydramine HCl (Benadryl) Confirm Administered Dose 50 mg .ROUTE .STK-MED ONE Stop: 08/18/17 16:45 Fentanyl (Sublimaze) Confirm Administered Dose 100 mcg .ROUTE .STK-MED ONE Stop: 08/18/17 16:40 Fentanyl (Sublimaze) 50 mcg IVPUSH Q5M PRN PRN Reason: Pain (severe 7-10) Stop: 08/18/17 21:00 Fentanyl (Sublimaze) Confirm Administered Dose 250 mcg .ROUTE .STK-MED ONE Stop: 08/18/17 17:35 Glycopyrrolate () Confirm Administered Dose 1 mg .ROUTE .STK-MED ONE Stop: 08/18/17 16:45 Sodium Chloride (Normal Saline) 1,000 mls @ 999 mls/hr IV STAT ONE Stop: 08/18/17 14:20 Last Admin: 08/18/17 13:53 Dose: 999 mls/hr Piperacillin Sod/Tazobactam (Sod 3.375 gm/ Sodium Chloride) 50 mls @ 100 mls/ hr IV ONETIME ONE Stop: 08/18/17 16:30 Last Admin: 08/18/17 16:13 Dose: 100 mls/hr Iopamidol (Isovue-370 (76%)) 100 ml IVPUSH ONETIME STA Stop: 08/18/17 14:55 Last Admin: 08/18/17 14:56 Dose: 100 ml Ketorolac Tromethamine (Toradol) 30 mg IVPUSH ONETIME ONE Stop: 08/18/17 13:21 Last Admin: 08/18/17 13:53 Dose: 30 mg Lidocaine (Xylocaine-Mpf 2%) Confirm Administered Dose 5 ml .ROUTE .STK-MED ONE Stop: 08/18/17 16:45 Meperidine HCl (Demerol) Confirm Administered Dose 25 mg .ROUTE .STK-MED ONE Stop: 08/18/17 18:51 Last Admin: 08/19/17 00:23 Dose: Not Given Midazolam HCl (Versed 1 Mg/Ml) Confirm Administered Dose 2 mg .ROUTE .STK-MED ONE Stop: 08/18/17 16:40 Neostigmine Methylsulfate (Neostigmine) Confirm Administered Dose 5 mg .ROUTE .STK-MED ONE Stop: 08/18/17 16:45 Ondansetron HCl (Zofran) 4 mg IVPUSH ONETIME ONE Stop: 08/18/17 13:21 Last Admin: 08/18/17 13:53 Dose: 4 mg Ondansetron HCl (Zofran) Confirm Administered Dose 4 mg .ROUTE .STK-MED ONE Stop: 08/18/17 16:45 Propofol (Diprivan 20 Ml) Confirm Administered Dose 200 mg .ROUTE .STK-MED ONE Stop: 08/18/17 16:40 Rocuronium [place] (Zemuron) Confirm Administered Dose 100 mg .ROUTE .STK-MED ONE Stop: 08/18/17 16:45 - Exam Wound/Incisions: Dressing Dry and Intact General: Alert, Oriented Lungs: Clear to Auscultation, Normal Respiratory Effort Cardiovascular: Regular Rate, Regular Rhythm GI/Abdominal Exam: Normal Bowel Sounds, Soft, Non-Tender, No Distention Extremities: Normal Inspection Skin: Warm, Dry, Intact - Problem List & Annotations (1) Acute appendicitis SNOMED Code(s): 58674800 Code(s): K35.80 - UNSPECIFIED ACUTE APPENDICITIS Status: Acute Current Visit: Yes Qualifiers: Acute appendicitis type: unspecified acute appendicitis type Qualified Code (s): K35.80 - Unspecified acute appendicitis - Problem List Review Problem List Initiated/Reviewed/Updated: Yes - My Orders Last 24 Hours: Active Orders 24 hr Category Date Time Status Regular Diet [DIET] Diet 08/19/17 Lunch Active Medication Orders Hydrocodone Bitart/Acetaminophen ([place] 325-5 Mg) 2 tab PO Q4H PRN PRN Reason: Pain (moderate 4-6) Last Admin: 08/19/17 08:25 Dose: 2 tab Admin: 08/19/17 04:18 Dose: 2 tab Admin: 08/18/17 21:28 Dose: 2 tab Hydromorphone HCl (Dilaudid) 0.5 mg IVPUSH Q1H PRN PRN Reason: Pain (severe 7-10) Last Admin: 08/19/17 05:21 Dose: 0.5 mg Lactated Ringer's (Ringers, Lactated) 1,000 mls @ 125 mls/hr IV ASDIRECTED [facility] Last Admin: 08/19/17 07:45 Dose: 125 mls/hr Infusion: 08/19/17 07:45 Dose: 125 mls/hr Admin: 08/19/17 00:32 Dose: 125 mls/hr Piperacillin Sod/Tazobactam (Sod 3.375 gm/ Sodium Chloride) 50 mls @ 100 mls/ hr IV Q8H [facility] Last Admin: 08/19/17 07:44 Dose: 100 mls/hr Infusion: 08/19/17 00:26 Dose: 100 mls/hr Admin: 08/18/17 23:56 Dose: 100 mls/hr Ondansetron HCl (Zofran) 4 mg IVPUSH Q6H PRN PRN Reason: Nausea/Vomiting - Plan Plan (Free Text/Narrative):: -Pain: [place], IV dilaudid -Febrile and tachycardic last night which is to be expected given her perforated and necrotic appendix. Continue IVF and IV antibiotics. -Regular diet -Encourage OOB activity and IS use.
--- NOTE | 2017-08-19 16:04 | CT ---
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 Site : [id number] Study: CT Abdomen/Pelvis [id number] 3:08:11 PM Ordering Physician: Doctor Koch Final Report: INDICATION: Nausea, right-sided pain. Lightheaded. No appetite. Symptoms since Saturday. Technique: CT of the abdomen and pelvis performed after IV injection of contrast. Findings: Moderate sized irregular shaped stone in the gallbladder. Tiny stone left kidney. Small lymph nodes diffusely throughout the abdomen pelvis. Small cyst in the left ovary. Small amount of complex fluid in the pelvis posteriorly could be physiologic or related to the appendiceal pathology described above. Mild soft tissue stranding about the descending colon focally on image is 46- 52. There are diverticula in this region. This could be related to mild acute diverticulitis. The appendix is dilated to moderately prominent degree and has a thick enhancing wall. Appendix measures 1.5 cm in diameter and contains appendicolith. Moderate amount of phlegmonous inflammatory stranding in the periappendiceal and right mid and upper pelvic fat with greater than small amounts of fluid in the same region. Findings typical of acute appendicitis. No abscess or free air at this time but given the changes the findings could indicate impending rupture. Wall thickening at the base of the cecum related to the appendicitis. The terminal ileal wall may be mildly thickened also related to similar etiology. Mild soft tissue stranding in the fat lateral to the liver may be related to more diffuse changes from the appendicitis. Remainder negative. Impression: 1. Moderately prominent changes of acute appendicitis as described above without abscess or free air. Given the degree of phlegmonous inflammatory stranding and fluid about the appendix, findings could indicate a impending rupture. 2. Mild soft tissue stranding about the descending colon where there are diverticula could be related to mild inflammation such as mild diverticulitis. 3. Cholelithiasis. 4. Small cyst left ovary. 5. Small amount of complex fluid in the pelvis posteriorly may be related to the appendicitis or physiologic etiology. 6. Moderate wall thickening involving the base of the cecum likely related to the appendicitis. 7. Tiny stone left kidney. Other findings as above. Please note that all CT scans at this facility use dose modulation, iterative reconstruction, and/or weight-based dosing when appropriate to reduce radiation dose to as low as reasonably achievable. Dictated by Daniele Soto MD @ Aug 18 2017 3:29PM (Electronic Signature) Report Signed by Proxy. MTDD
[2017-08-20] MEDS: Acetaminophen/HYDROcodone 325-5 MG Tab PO PRN ×4 (03:33→20:28)
[2017-08-20] MEDS: Piperacillin/Tazobactam 3.375 GM in Sodium Chloride 0.9% 50 ML IV SCH ×2 (07:40→15:13)
[2017-08-20] MEDS ORDERED: Lactated Ringers 1,000 ML IV ONE (12:44)
[2017-08-20] MEDS: Lactated Ringers 1,000 ML IV SCH (14:03)
--- NOTE | 2017-08-20 17:29 | PCM.SURGPN ---
- General Info Date of Service: 08/20/17 Date of Surgery/Procedure: 08/18/17 POD#: 2 Functional Status: Reports: Other (Patient's incisional pain is well- controlled. She continues to have some discomfort in the right lower quadrant but feels it is slowly improving. She is passing gas. She feels weak overall. She continues to have intermittent low-grade fevers and tachycardia.) - Review of Systems General: Reports: Fever, Weakness, Fatigue. Denies: Chills Pulmonary: Reports: No Symptoms Cardiovascular: Reports: No Symptoms Gastrointestinal: Reports: Abdominal Pain (Mild along right lower quadrant), Flatus - Patient Data Vitals - Most Recent: Last Vital Signs Temp 36.4 C 08/20/17 16:00 Pulse 104 H 08/20/17 16:00 Resp 20 08/20/17 16:00 BP 116/57 L 08/20/17 16:00 Pulse Ox 94 L 08/20/17 16:00 Weight - Most Recent: 111.13 kg I&O - Last 24 Hours: Intake & Output 08/20/17 08/20/17 08/20/17 06:59 14:59 22:59 Intake Total 1250 1764 Output Total 1450 1800 Balance -200 -36 Lab Results Last 24 Hrs: Laboratory Results - last 24 hr 08/20/17 Range/Units 07:43 WBC 12.79 H (4.0-11.0) K/uL RBC 4.72 (4.30-5.90) M/uL Hgb 12.3 (12.0-16.0) g/dL Hct 39.1 (36.0-46.0) % MCV 82.8 (80.0-98.0) fL MCH 26.1 L (27.0-32.0) pg MCHC 31.5 (31.0-37.0) g/dL RDW Std Deviation 45.7 (28.0-62.0) fl RDW Coeff of Rudy 15 (11.0-15.0) % Plt Count 277 (150-400) K/uL MPV 8.80 (7.40-12.00) fL Neut % (Auto) 81.2 H (48.0-80.0) % Lymph % (Auto) 13.2 L (16.0-40.0) % [place] % (Auto) 5.1 (0.0-15.0) % Eos % (Auto) 0.2 (0.0-7.0) % Baso % (Auto) 0.3 (0.0-1.5) % Neut # (Auto) 10.4 H (1.4-5.7) K/uL Lymph # (Auto) 1.7 (0.6-2.4) K/uL [place] # (Auto) 0.7 (0.0-0.8) K/uL Eos # (Auto) 0.0 (0.0-0.7) K/uL Baso # (Auto) 0.0 (0.0-0.1) K/uL Nucleated RBC % 0.0 /100WBC Nucleated RBCs # 0 K/uL Med Orders - Current: Current Medications Hydrocodone Bitart/Acetaminophen ([place] 325-5 Mg) 2 tab PO Q4H PRN PRN Reason: Pain (moderate 4-6) Last Admin: 08/20/17 14:08 Dose: 2 tab Hydromorphone HCl (Dilaudid) 0.5 mg IVPUSH Q1H PRN PRN Reason: Pain (severe 7-10) Last Admin: 08/19/17 05:21 Dose: 0.5 mg Piperacillin Sod/Tazobactam (Sod 3.375 gm/ Sodium Chloride) 50 mls @ 100 mls/ hr IV Q8H [facility] Last Admin: 08/20/17 15:13 Dose: 100 mls/hr Lactated Ringer's (Ringers, Lactated) 1,000 mls @ 75 mls/hr IV ASDIRECTED [facility] Last Admin: 08/20/17 14:03 Dose: 75 mls/hr Ondansetron HCl (Zofran) 4 mg IVPUSH Q6H PRN PRN Reason: Nausea/Vomiting Discontinued Medications Bupivacaine HCl (Marcaine 0.5%) Confirm Administered Dose 30 ml .ROUTE .STK-MED ONE Stop: 08/18/17 16:40 Cefazolin Sodium (Ancef) Confirm Administered Dose 1 gm .ROUTE .STK-MED ONE Stop: 08/18/17 16:40 Diphenhydramine HCl (Benadryl) Confirm Administered Dose 50 mg .ROUTE .STK-MED ONE Stop: 08/18/17 16:45 Fentanyl (Sublimaze) Confirm Administered Dose 100 mcg .ROUTE .STK-MED ONE Stop: 08/18/17 16:40 Fentanyl (Sublimaze) 50 mcg IVPUSH Q5M PRN PRN Reason: Pain (severe 7-10) Stop: 08/18/17 21:00 Fentanyl (Sublimaze) Confirm Administered Dose 250 mcg .ROUTE .STK-MED ONE Stop: 08/18/17 17:35 Glycopyrrolate () Confirm Administered Dose 1 mg .ROUTE .STK-MED ONE Stop: 08/18/17 16:45 Sodium Chloride (Normal Saline) 1,000 mls @ 999 mls/hr IV STAT ONE Stop: 08/18/17 14:20 Last Admin: 08/18/17 13:53 Dose: 999 mls/hr Piperacillin Sod/Tazobactam (Sod 3.375 gm/ Sodium Chloride) 50 mls @ 100 mls/ hr IV ONETIME ONE Stop: 08/18/17 16:30 Last Admin: 08/18/17 16:13 Dose: 100 mls/hr Lactated Ringer's (Ringers, Lactated) 1,000 mls @ 125 mls/hr IV ASDIRECTED [facility] Last Admin: 08/19/17 07:45 Dose: 125 mls/hr Lactated Ringer's (Ringers, Lactated) 1,000 mls @ 1,000 mls/hr IV .BOLUS ONE Stop: 08/20/17 13:43 Last Admin: 08/20/17 12:52 Dose: 1,000 mls/hr Iopamidol (Isovue-370 (76%)) 100 ml IVPUSH ONETIME STA Stop: 08/18/17 14:55 Last Admin: 08/18/17 14:56 Dose: 100 ml Ketorolac Tromethamine (Toradol) 30 mg IVPUSH ONETIME ONE Stop: 08/18/17 13:21 Last Admin: 08/18/17 13:53 Dose: 30 mg Lidocaine (Xylocaine-Mpf 2%) Confirm Administered Dose 5 ml .ROUTE .STK-MED ONE Stop: 08/18/17 16:45 Meperidine HCl (Demerol) Confirm Administered Dose 25 mg .ROUTE .STK-MED ONE Stop: 08/18/17 18:51 Last Admin: 08/19/17 00:23 Dose: Not Given Midazolam HCl (Versed 1 Mg/Ml) Confirm Administered Dose 2 mg .ROUTE .STK-MED ONE Stop: 08/18/17 16:40 Neostigmine Methylsulfate (Neostigmine) Confirm Administered Dose 5 mg .ROUTE .STK-MED ONE Stop: 08/18/17 16:45 Ondansetron HCl (Zofran) 4 mg IVPUSH ONETIME ONE Stop: 08/18/17 13:21 Last Admin: 08/18/17 13:53 Dose: 4 mg Ondansetron HCl (Zofran) Confirm Administered Dose 4 mg .ROUTE .STK-MED ONE Stop: 08/18/17 16:45 Propofol (Diprivan 20 Ml) Confirm Administered Dose 200 mg .ROUTE .STK-MED ONE Stop: 08/18/17 16:40 Rocuronium [place] (Zemuron) Confirm Administered Dose 100 mg .ROUTE .STK-MED ONE Stop: 08/18/17 16:45 - Exam Wound/Incisions: Healing Well General: Alert, Oriented Lungs: Clear to Auscultation, Normal Respiratory Effort Cardiovascular: Regular Rhythm, Tachycardia GI/Abdominal Exam: Soft, Non-Tender, No Distention. No: Rigid, Rebound, Tender - Problem List & Annotations (1) Acute appendicitis SNOMED Code(s): 85679356 Code(s): K35.80 - UNSPECIFIED ACUTE APPENDICITIS Status: Acute Current Visit: Yes Qualifiers: Acute appendicitis type: unspecified acute appendicitis type Qualified Code (s): K35.80 - Unspecified acute appendicitis - Problem List Review Problem List Initiated/Reviewed/Updated: Yes - My Orders Last 24 Hours: Active Orders 24 hr Category Date Time Status CBC WITH AUTO DIFF [HEME] AM Lab 08/21/17 05:11 Ordered CBC WITH AUTO DIFF [HEME] AM Lab 08/22/17 05:11 Ordered Lactated Ringers [Ringers, Lactated] 1,000 ml Med 08/20/17 13:00 Active IV ASDIRECTED Medication Orders Hydrocodone Bitart/Acetaminophen ([place] 325-5 Mg) 2 tab PO Q4H PRN PRN Reason: Pain (moderate 4-6) Last Admin: 08/20/17 14:08 Dose: 2 tab Admin: 08/20/17 08:38 Dose: 2 tab Admin: 08/20/17 03:33 Dose: 2 tab Admin: 08/19/17 21:19 Dose: 2 tab Admin: 08/19/17 17:11 Dose: 2 tab Admin: 08/19/17 12:43 Dose: 2 tab Admin: 08/19/17 08:25 Dose: 2 tab Admin: 08/19/17 04:18 Dose: 2 tab Admin: 08/18/17 21:28 Dose: 2 tab Hydromorphone HCl (Dilaudid) 0.5 mg IVPUSH Q1H PRN PRN Reason: Pain (severe 7-10) Last Admin: 08/19/17 05:21 Dose: 0.5 mg Piperacillin Sod/Tazobactam (Sod 3.375 gm/ Sodium Chloride) 50 mls @ 100 mls/ hr IV Q8H [facility] Last Admin: 08/20/17 15:13 Dose: 100 mls/hr Infusion: 08/20/17 08:10 Dose: 100 mls/hr Admin: 08/20/17 07:40 Dose: 100 mls/hr Infusion: 08/20/17 00:14 Dose: 100 mls/hr Admin: 08/19/17 23:44 Dose: 100 mls/hr Infusion: 08/19/17 16:24 Dose: 100 mls/hr Admin: 08/19/17 15:54 Dose: 100 mls/hr Infusion: 08/19/17 08:14 Dose: 100 mls/hr Admin: 08/19/17 07:44 Dose: 100 mls/hr Infusion: 08/19/17 00:26 Dose: 100 mls/hr Admin: 08/18/17 23:56 Dose: 100 mls/hr Lactated Ringer's (Ringers, Lactated) 1,000 mls @ 75 mls/hr IV ASDIRECTED [facility] Last Admin: 08/20/17 14:03 Dose: 75 mls/hr Ondansetron HCl (Zofran) 4 mg IVPUSH Q6H PRN PRN Reason: Nausea/Vomiting - Assessment Assessment (Free Text/Narrative):: The patient's pathology result came back as frankly necrotic appearing appendix. They basically appendix appeared swollen but normal. Most likely she continues to have fevers secondary to the perforated appendicitis. I gave the patient a 1 L bolus of fluid and started her back on IV fluids given the ongoing fevers. We'll continue IV Zosyn. She is tolerating a diet and passing flatus. Patient has been ambulating throughout the halls and her pain seems well controlled. We'll continue to monitor her closely.
[2017-08-21] MEDS: Piperacillin/Tazobactam 3.375 GM in Sodium Chloride 0.9% 50 ML IV SCH ×2 (01:00→08:09)
[2017-08-21] MEDS: Acetaminophen/HYDROcodone 325-5 MG Tab PO PRN ×2 (01:24→05:54)
[2017-08-21] MEDS: Lactated Ringers 1,000 ML IV SCH (04:28)
[2017-08-21] MEDS ORDERED: oxyCODONE 5 MG Tab PO PRN (07:58)
--- NOTE | 2017-08-21 08:01 | PCM.SURGPN ---
- General Info Date of Service: 08/21/17 Date of Surgery/Procedure: 08/18/17 POD#: 3 Functional Status: Reports: Pain Controlled, Tolerating Diet, Ambulating, Urinating, Other (Having BM. Febrile to 39.1 early this morning. ) - Review of Systems General: Reports: Fever, Fatigue Gastrointestinal: Reports: No Symptoms - Patient Data Vitals - Most Recent: Last Vital Signs Temp 37.1 C 08/21/17 04:00 Pulse 104 H 08/21/17 04:00 Resp 16 08/21/17 04:00 BP 110/55 L 08/21/17 04:00 Pulse Ox 93 L 08/21/17 04:00 Weight - Most Recent: 111.13 kg I&O - Last 24 Hours: Intake & Output 08/20/17 08/21/17 08/21/17 22:59 06:59 14:59 Intake Total 1764 2436 Output Total 1800 1450 Balance -36 986 Lab Results Last 24 Hrs: Laboratory Results - last 24 hr 08/20/17 08/21/17 Range/Units 07:43 05:15 WBC 12.79 H 10.95 (4.0-11.0) K/uL RBC 4.72 4.11 L (4.30-5.90) M/uL Hgb 12.3 10.7 L (12.0-16.0) g/dL Hct 39.1 33.9 L (36.0-46.0) % MCV 82.8 82.5 (80.0-98.0) fL MCH 26.1 L 26.0 L (27.0-32.0) pg MCHC 31.5 31.6 (31.0-37.0) g/dL RDW Std Deviation 45.7 45.0 (28.0-62.0) fl RDW Coeff of Rudy 15 15 (11.0-15.0) % Plt Count 277 287 (150-400) K/uL MPV 8.80 8.90 (7.40-12.00) fL Neut % (Auto) 81.2 H 75.4 (48.0-80.0) % Lymph % (Auto) 13.2 L 16.2 (16.0-40.0) % [place] % (Auto) 5.1 7.3 (0.0-15.0) % Eos % (Auto) 0.2 0.7 (0.0-7.0) % Baso % (Auto) 0.3 0.4 (0.0-1.5) % Neut # (Auto) 10.4 H 8.3 H (1.4-5.7) K/uL Lymph # (Auto) 1.7 1.8 (0.6-2.4) K/uL [place] # (Auto) 0.7 0.8 (0.0-0.8) K/uL Eos # (Auto) 0.0 0.1 (0.0-0.7) K/uL Baso # (Auto) 0.0 0.0 (0.0-0.1) K/uL Nucleated RBC % 0.0 0.0 /100WBC Nucleated RBCs # 0 0 K/uL Med Orders - Current: Current Medications Hydrocodone Bitart/Acetaminophen ([place] 325-5 Mg) 2 tab PO Q4H PRN PRN Reason: Pain (moderate 4-6) Last Admin: 08/21/17 05:54 Dose: 2 tab Hydromorphone HCl (Dilaudid) 0.5 mg IVPUSH Q1H PRN PRN Reason: Pain (severe 7-10) Last Admin: 08/19/17 05:21 Dose: 0.5 mg Piperacillin Sod/Tazobactam (Sod 3.375 gm/ Sodium Chloride) 50 mls @ 100 mls/ hr IV Q8H [facility] Last Admin: 08/21/17 01:00 Dose: 100 mls/hr Ondansetron HCl (Zofran) 4 mg IVPUSH Q6H PRN PRN Reason: Nausea/Vomiting Discontinued Medications Bupivacaine HCl (Marcaine 0.5%) Confirm Administered Dose 30 ml .ROUTE .STK-MED ONE Stop: 08/18/17 16:40 Cefazolin Sodium (Ancef) Confirm Administered Dose 1 gm .ROUTE .STK-MED ONE Stop: 08/18/17 16:40 Diphenhydramine HCl (Benadryl) Confirm Administered Dose 50 mg .ROUTE .STK-MED ONE Stop: 08/18/17 16:45 Fentanyl (Sublimaze) Confirm Administered Dose 100 mcg .ROUTE .STK-MED ONE Stop: 08/18/17 16:40 Fentanyl (Sublimaze) 50 mcg IVPUSH Q5M PRN PRN Reason: Pain (severe 7-10) Stop: 08/18/17 21:00 Fentanyl (Sublimaze) Confirm Administered Dose 250 mcg .ROUTE .STK-MED ONE Stop: 08/18/17 17:35 Glycopyrrolate () Confirm Administered Dose 1 mg .ROUTE .STK-MED ONE Stop: 08/18/17 16:45 Sodium Chloride (Normal Saline) 1,000 mls @ 999 mls/hr IV STAT ONE Stop: 08/18/17 14:20 Last Admin: 08/18/17 13:53 Dose: 999 mls/hr Piperacillin Sod/Tazobactam (Sod 3.375 gm/ Sodium Chloride) 50 mls @ 100 mls/ hr IV ONETIME ONE Stop: 08/18/17 16:30 Last Admin: 08/18/17 16:13 Dose: 100 mls/hr Lactated Ringer's (Ringers, Lactated) 1,000 mls @ 125 mls/hr IV ASDIRECTED [facility] Last Admin: 08/19/17 07:45 Dose: 125 mls/hr Lactated Ringer's (Ringers, Lactated) 1,000 mls @ 1,000 mls/hr IV .BOLUS ONE Stop: 08/20/17 13:43 Last Admin: 08/20/17 12:52 Dose: 1,000 mls/hr Lactated Ringer's (Ringers, Lactated) 1,000 mls @ 75 mls/hr IV ASDIRECTED [facility] Last Admin: 08/21/17 04:28 Dose: 75 mls/hr Iopamidol (Isovue-370 (76%)) 100 ml IVPUSH ONETIME STA Stop: 08/18/17 14:55 Last Admin: 08/18/17 14:56 Dose: 100 ml Ketorolac Tromethamine (Toradol) 30 mg IVPUSH ONETIME ONE Stop: 08/18/17 13:21 Last Admin: 08/18/17 13:53 Dose: 30 mg Lidocaine (Xylocaine-Mpf 2%) Confirm Administered Dose 5 ml .ROUTE .STK-MED ONE Stop: 08/18/17 16:45 Meperidine HCl (Demerol) Confirm Administered Dose 25 mg .ROUTE .STK-MED ONE Stop: 08/18/17 18:51 Last Admin: 08/19/17 00:23 Dose: Not Given Midazolam HCl (Versed 1 Mg/Ml) Confirm Administered Dose 2 mg .ROUTE .STK-MED ONE Stop: 08/18/17 16:40 Neostigmine Methylsulfate (Neostigmine) Confirm Administered Dose 5 mg .ROUTE .STK-MED ONE Stop: 08/18/17 16:45 Ondansetron HCl (Zofran) 4 mg IVPUSH ONETIME ONE Stop: 08/18/17 13:21 Last Admin: 08/18/17 13:53 Dose: 4 mg Ondansetron HCl (Zofran) Confirm Administered Dose 4 mg .ROUTE .STK-MED ONE Stop: 08/18/17 16:45 Propofol (Diprivan 20 Ml) Confirm Administered Dose 200 mg .ROUTE .STK-MED ONE Stop: 08/18/17 16:40 Rocuronium [place] (Zemuron) Confirm Administered Dose 100 mg .ROUTE .STK-MED ONE Stop: 08/18/17 16:45 - Exam Wound/Incisions: Healing Well General: Alert, Oriented Lungs: Normal Respiratory Effort Cardiovascular: Tachycardia GI/Abdominal Exam: Soft, Non-Tender, No Distention Skin: Warm, Dry, Intact Psy/Mental Status: Alert, Normal Affect - Problem List & Annotations (1) Acute appendicitis SNOMED Code(s): 50202915 Code(s): K35.80 - UNSPECIFIED ACUTE APPENDICITIS Status: Acute Current Visit: Yes Qualifiers: Acute appendicitis type: unspecified acute appendicitis type Qualified Code (s): K35.80 - Unspecified acute appendicitis - Problem List Review Problem List Initiated/Reviewed/Updated: Yes - My Orders Last 24 Hours: Active Orders 24 hr Category Date Time Status CBC WITH AUTO DIFF [HEME] AM Lab 08/22/17 05:11 Ordered Medication Orders Hydrocodone Bitart/Acetaminophen ([place] 325-5 Mg) 2 tab PO Q4H PRN PRN Reason: Pain (moderate 4-6) Last Admin: 08/21/17 05:54 Dose: 2 tab Admin: 08/21/17 01:24 Dose: 2 tab Admin: 08/20/17 20:28 Dose: 2 tab Admin: 08/20/17 14:08 Dose: 2 tab Admin: 08/20/17 08:38 Dose: 2 tab Admin: 08/20/17 03:33 Dose: 2 tab Admin: 08/19/17 21:19 Dose: 2 tab Admin: 08/19/17 17:11 Dose: 2 tab Admin: 08/19/17 12:43 Dose: 2 tab Admin: 08/19/17 08:25 Dose: 2 tab Admin: 08/19/17 04:18 Dose: 2 tab Admin: 08/18/17 21:28 Dose: 2 tab Hydromorphone HCl (Dilaudid) 0.5 mg IVPUSH Q1H PRN PRN Reason: Pain (severe 7-10) Last Admin: 08/19/17 05:21 Dose: 0.5 mg Piperacillin Sod/Tazobactam (Sod 3.375 gm/ Sodium Chloride) 50 mls @ 100 mls/ hr IV Q8H [facility] Last Admin: 08/21/17 01:00 Dose: 100 mls/hr Infusion: 08/20/17 15:43 Dose: 100 mls/hr Admin: 08/20/17 15:13 Dose: 100 mls/hr Infusion: 08/20/17 08:10 Dose: 100 mls/hr Admin: 08/20/17 07:40 Dose: 100 mls/hr Infusion: 08/20/17 00:14 Dose: 100 mls/hr Admin: 08/19/17 23:44 Dose: 100 mls/hr Infusion: 08/19/17 16:24 Dose: 100 mls/hr Admin: 08/19/17 15:54 Dose: 100 mls/hr Infusion: 08/19/17 08:14 Dose: 100 mls/hr Admin: 08/19/17 07:44 Dose: 100 mls/hr Infusion: 08/19/17 00:26 Dose: 100 mls/hr Admin: 08/18/17 23:56 Dose: 100 mls/hr Ondansetron HCl (Zofran) 4 mg IVPUSH Q6H PRN PRN Reason: Nausea/Vomiting - Assessment Assessment (Free Text/Narrative):: Ruptured appendicitis - Plan Plan (Free Text/Narrative):: -Patient continues to have mild tachycardia and fever. This morning was the highest temperature she has had. Her abdominal pain is greatly improved and she has return of bowel function. Her WBC is WNL and left shift has resolved. Will continue to keep on IV zosyn until fevers improve. Gave fluid bolus yesterday but remains slightly tachycardic. UOP adequate. Will hold MIVF. Will schedule tylenol and switch her po pain medication to oxycodone.
[2017-08-21] MEDS: Enoxaparin 40 MG/0.4 ML Syringe SUBCUT SCH (08:21)
[2017-08-21] MEDS: Acetaminophen 325 MG Tab PO SCH ×3 (08:21→20:47)
[2017-08-21] MEDS: Ondansetron 4 MG/2 ML SDV IVPUSH PRN ×2 (11:08→16:00)
[2017-08-21] MEDS: metroNIDAZOLE 250 MG Tab PO SCH ×2 (13:30→18:58)
[2017-08-21] MEDS: Ciprofloxacin 500 MG Tab PO SCH ×2 (13:30→20:47)
[2017-08-22] MEDS: Acetaminophen 325 MG Tab PO SCH ×2 (01:55→08:53)
[2017-08-22] MEDS: metroNIDAZOLE 250 MG Tab PO SCH ×2 (01:55→06:41)
--- NOTE | 2017-08-22 08:29 | PCM.DCSUM1 ---
Discharge Summary - Hospital Course Free Text/Narrative:: Patient is a 37 year old female who presented with 3 days of abdominal pain. Work up revealed appendicitis. She was taken to the OR and found to have a ruptured and necrotic. There was no intra-abdominal abscess. It was able to be removed laparoscopically. Post operatively she was tachycardic and febrile. She was kept on IV antibiotics. Eventually her WBC started to decrease and her abdomen pain improved. Her diet was advanced and her appetite improved. She had return of flatus and had a BM. She has been afebrile for 24 hours. Her tachycardia has improved. She is clear to d/c home. - Discharge Data Discharge Date: 08/22/17 Discharge Disposition: Home, Self-Care 01 Condition: Good - Discharge Diagnosis/Problem(s) (1) Acute appendicitis SNOMED Code(s): 82241679 ICD Code: K35.80 - UNSPECIFIED ACUTE APPENDICITIS Status: Acute Current Visit: Yes Qualifiers: Acute appendicitis type: unspecified acute appendicitis type Qualified Code (s): K35.80 - Unspecified acute appendicitis - Patient Summary/Data Operative Procedure(s) Performed: Laparoscopic appendectomy - Patient Instructions Diet: Regular Diet as Tolerated Activity: No Lifting Over 20 Pounds (for four weeks after surgery), Rest and Relax Today Driving: Do Not Drive (while on narcotic medications or for one week after surgery ) Showering/Bathing: May Shower, No Tub Bathing/Swimming (for two weeks ) Wound/Incision Care: Keep Operative Site/Wound Site Clean and Dry Notify Provider of: Fever, Increased Pain, Swelling and Redness, Drainage, Nausea and/or Vomiting - Discharge Plan Prescriptions/Med Rec: Ciprofloxacin [Ciprofloxacin HCl] 500 mg PO BID 4 Days #8 tablet metroNIDAZOLE 250 mg PO Q6H 4 Days #16 tablet Home Medications: Home Meds Ciprofloxacin [Ciprofloxacin HCl] 500 mg PO BID 4 Days #8 tablet 08/22/17 [Rx] metroNIDAZOLE 250 mg PO Q6H 4 Days #16 tablet 08/22/17 [Rx] Forms: ED Department Discharge Referrals: PCP,None [Primary Care Provider] - - General Info Date of Service: 08/22/17 Subjective Update: No nausea, vomiting, fever, chills, or abdominal pain. Ambulating without difficulty. Functional Status: Reports: Pain Controlled, Tolerating Diet, Ambulating, Urinating - Review of Systems General: Reports: No Symptoms Gastrointestinal: Reports: No Symptoms - Patient Data Vitals - Most Recent: Last Vital Signs Temp 36.2 C 08/22/17 04:00 Pulse 93 08/22/17 04:00 Resp 18 08/22/17 04:00 BP 132/81 08/22/17 04:00 Pulse Ox 95 08/22/17 04:00 Weight - Most Recent: 111.13 kg I&O - Last 24 hours: Intake & Output 08/21/17 08/22/17 08/22/17 22:59 06:59 14:59 Intake Total 1386 1836 Output Total 1200 2300 Balance 186 -464 Lab Results - Last 24 hrs: Laboratory Results - last 24 hr 08/22/17 Range/Units 04:54 WBC 7.59 (4.0-11.0) K/uL RBC 3.89 L (4.30-5.90) M/uL Hgb 9.9 L (12.0-16.0) g/dL Hct 31.8 L (36.0-46.0) % MCV 81.7 (80.0-98.0) fL MCH 25.4 L (27.0-32.0) pg MCHC 31.1 (31.0-37.0) g/dL RDW Std Deviation 44.8 (28.0-62.0) fl RDW Coeff of Rudy 15 (11.0-15.0) % Plt Count 335 (150-400) K/uL MPV 8.80 (7.40-12.00) fL Neut % (Auto) 64.8 (48.0-80.0) % Lymph % (Auto) 22.9 (16.0-40.0) % [place] % (Auto) 8.7 (0.0-15.0) % Eos % (Auto) 3.2 (0.0-7.0) % Baso % (Auto) 0.4 (0.0-1.5) % Neut # (Auto) 4.9 (1.4-5.7) K/uL Lymph # (Auto) 1.7 (0.6-2.4) K/uL [place] # (Auto) 0.7 (0.0-0.8) K/uL Eos # (Auto) 0.2 (0.0-0.7) K/uL Baso # (Auto) 0.0 (0.0-0.1) K/uL Nucleated RBC % 0.0 /100WBC Nucleated RBCs # 0 K/uL Med Orders - Current: Current Medications Acetaminophen (Tylenol) 650 mg PO Q6H [facility] Last Admin: 08/22/17 01:55 Dose: 650 mg Ciprofloxacin (Ciprofloxacin Hcl) 500 mg PO BID [facility] Last Admin: 08/21/17 20:47 Dose: 500 mg Enoxaparin Sodium (Lovenox) 40 mg SUBCUT Q24H [facility] Last Admin: 08/21/17 08:21 Dose: 40 mg Hydromorphone HCl (Dilaudid) 0.5 mg IVPUSH Q1H PRN PRN Reason: Pain (severe 7-10) Last Admin: 08/19/17 05:21 Dose: 0.5 mg Metronidazole (Metronidazole) 250 mg PO Q6H [facility] Last Admin: 08/22/17 06:41 Dose: 250 mg Ondansetron HCl (Zofran) 4 mg IVPUSH Q6H PRN PRN Reason: Nausea/Vomiting Last Admin: 08/21/17 16:00 Dose: 4 mg Oxycodone HCl (Oxycodone) 10 mg PO Q4H PRN PRN Reason: Abdominal Pain Discontinued Medications Hydrocodone Bitart/Acetaminophen ([place] 325-5 Mg) 2 tab PO Q4H PRN PRN Reason: Pain (moderate 4-6) Last Admin: 08/21/17 05:54 Dose: 2 tab Bupivacaine HCl (Marcaine 0.5%) Confirm Administered Dose 30 ml .ROUTE .STK-MED ONE Stop: 08/18/17 16:40 Cefazolin Sodium (Ancef) Confirm Administered Dose 1 gm .ROUTE .STK-MED ONE Stop: 08/18/17 16:40 Diphenhydramine HCl (Benadryl) Confirm Administered Dose 50 mg .ROUTE .STK-MED ONE Stop: 08/18/17 16:45 Fentanyl (Sublimaze) Confirm Administered Dose 100 mcg .ROUTE .STK-MED ONE Stop: 08/18/17 16:40 Fentanyl (Sublimaze) 50 mcg IVPUSH Q5M PRN PRN Reason: Pain (severe 7-10) Stop: 08/18/17 21:00 Fentanyl (Sublimaze) Confirm Administered Dose 250 mcg .ROUTE .STK-MED ONE Stop: 08/18/17 17:35 Glycopyrrolate () Confirm Administered Dose 1 mg .ROUTE .STK-MED ONE Stop: 08/18/17 16:45 Sodium Chloride (Normal Saline) 1,000 mls @ 999 mls/hr IV STAT ONE Stop: 08/18/17 14:20 Last Admin: 08/18/17 13:53 Dose: 999 mls/hr Piperacillin Sod/Tazobactam (Sod 3.375 gm/ Sodium Chloride) 50 mls @ 100 mls/ hr IV ONETIME ONE Stop: 08/18/17 16:30 Last Admin: 08/18/17 16:13 Dose: 100 mls/hr Lactated Ringer's (Ringers, Lactated) 1,000 mls @ 125 mls/hr IV ASDIRECTED [facility] Last Admin: 08/19/17 07:45 Dose: 125 mls/hr Piperacillin Sod/Tazobactam (Sod 3.375 gm/ Sodium Chloride) 50 mls @ 100 mls/ hr IV Q8H [facility] Last Admin: 08/21/17 08:09 Dose: 100 mls/hr Lactated Ringer's (Ringers, Lactated) 1,000 mls @ 1,000 mls/hr IV .BOLUS ONE Stop: 08/20/17 13:43 Last Admin: 08/20/17 12:52 Dose: 1,000 mls/hr Lactated Ringer's (Ringers, Lactated) 1,000 mls @ 75 mls/hr IV ASDIRECTED [facility] Last Admin: 08/21/17 04:28 Dose: 75 mls/hr Iopamidol (Isovue-370 (76%)) 100 ml IVPUSH ONETIME STA Stop: 08/18/17 14:55 Last Admin: 08/18/17 14:56 Dose: 100 ml Ketorolac Tromethamine (Toradol) 30 mg IVPUSH ONETIME ONE Stop: 08/18/17 13:21 Last Admin: 08/18/17 13:53 Dose: 30 mg Lidocaine (Xylocaine-Mpf 2%) Confirm Administered Dose 5 ml .ROUTE .STK-MED ONE Stop: 08/18/17 16:45 Meperidine HCl (Demerol) Confirm Administered Dose 25 mg .ROUTE .STK-MED ONE Stop: 08/18/17 18:51 Last Admin: 08/19/17 00:23 Dose: Not Given Midazolam HCl (Versed 1 Mg/Ml) Confirm Administered Dose 2 mg .ROUTE .STK-MED ONE Stop: 08/18/17 16:40 Neostigmine Methylsulfate (Neostigmine) Confirm Administered Dose 5 mg .ROUTE .STK-MED ONE Stop: 08/18/17 16:45 Ondansetron HCl (Zofran) 4 mg IVPUSH ONETIME ONE Stop: 08/18/17 13:21 Last Admin: 08/18/17 13:53 Dose: 4 mg Ondansetron HCl (Zofran) Confirm Administered Dose 4 mg .ROUTE .STK-MED ONE Stop: 08/18/17 16:45 Propofol (Diprivan 20 Ml) Confirm Administered Dose 200 mg .ROUTE .STK-MED ONE Stop: 08/18/17 16:40 Rocuronium [place] (Zemuron) Confirm Administered Dose 100 mg .ROUTE .STK-MED ONE Stop: 08/18/17 16:45 - Exam General: Reports: Alert, Oriented HEENT: Reports: Pupils Equal Neck: Reports: Supple Lungs: Reports: Clear to Auscultation, Normal Respiratory Effort Cardiovascular: Reports: Regular Rate, Regular Rhythm GI/Abdominal Exam: Normal Bowel Sounds, Soft, Non-Tender, No Distention Back Exam: Reports: Normal Inspection Extremities: Normal Inspection *Q Meaningful Use (DIS) - VTE *Q VTE Criteria *Q: - Stroke *Q Stroke Criteria *Q: - AMI *Q AMI Criteria *Q:
[2017-08-22] MEDS ORDERED: Acetaminophen/oxyCODONE 325-5 MG Tab PO PRN (08:34)
[2017-08-22] MEDS: Ciprofloxacin 500 MG Tab PO SCH (08:53)
[2017-08-22] MEDS: Enoxaparin 40 MG/0.4 ML Syringe SUBCUT SCH (08:53)
== END 2017-08-22 10:00 | disposition home or self-care (01) | DRG 340 ==
LOC: MW.ED 12:55 → MW.SDS 16:33 → MW.MS 19:14
PROVIDERS: ADMIT Surgery; ATTEND Surgery
PROC: 0DTJ4ZZ Resection of Appendix, Percutaneous Endoscopic Approach (ICD-10-PCS; principal; 2017-08-18)
DX: K35.2 Acute appendicitis with generalized peritonitis (principal)
CPT/HCPCS: 00840; 36415; 74177; 74177-26; 80053; 81001; 81025; 82150; 83690; 85025; 85027; 88304; 96361; 96365; 96375; 99284; 99285-25; A9270-GY; J0690; J1170; J1200; J1650; J1885; J2250; J2405; J2543; J2704; J3010; J7040; J7050; J7120; Q9967